=== PATIENT | female | born 1930 | race Caucasian/White ===

== ENCOUNTER 2018-11-26 09:04 | Emergency (ER) | payer BC, OTHER ==
--- NOTE | 2018-11-26 10:07 | PDOC ---
*Physical Exam - Vital Signs Last Vital Signs Temp Pulse Resp BP Pulse Ox 98.3 F 70 20 172/60 H 98 11/26/18 09:36 11/26/18 09:36 11/26/18 09:36 11/26/18 09:36 11/26/18 09:36 - Physical Exam General Appearance: Yes: Nourished, Appropriately Dressed HEENT: positive: Normal Voice, Hearing Grossly Normal Neck: positive: Trachea midline, Supple Respiratory/Chest: positive: Lungs Clear, Normal Breath Sounds Cardiovascular: positive: S1, S2, Systolic Murmur Vascular Pulses: Dorsalis-Pedis (R): 2+, Doralis-Pedis (L): 2+ ED Treatment Course - LABORATORY CBC & Chemistry Diagram: 11/26/18 10:22 11/26/18 10:22 Medical Decision Making - Medical Decision Making 11/26/18 10:46 Patient seen as pre-attending w/Dr. Brewster 87 year old female w/ PMH of HTN, HLD, CAD (s/p stent x2) who presents with diarrhea, lightheadedness and dizziness. Patient visited her PMD earlier in the week for constipation and took an unknown pill and subsequently develop 15 episodes of non-bloody watery stools. Patient states she started feel dizzy ( patient describes this as room spinning) around 4 a.m. this morning and the dizziness has persisted. No nausea/vomiting. Tolerating liquid PO intake. Denies chest pain, shortness of breath, numbness/tingling. Negative Stephanie Hallpike on PE, mild LLQ TTP Will CT Head, CTAP, CBC/CMP, EKG, Troponin x1 11/26/18 11:20 EKG shows RBB - no previous EKG in EMR Troponin (-) x1 Patient @ CT 11/26/18 12:[address] negative for acute bleed/ischemia CTAP negative 11/26/18 12:54 Patient reassessed @ bedside, dizziness improved 11/26/18 13:21 Patient ambulatory around ED Romberg Test negative 11/26/18 14:42 Dr. Brewster (PGY-1) discussed case with Dr. Fiore (covering for patient's PMD) - agrees with discharge home and will see patient tomorrow in the office. Patient and patient's family counseled on plan of care using Yoruba translation phones and discharged home. *DC/Admit/Observation/Transfer Diagnosis at time of Disposition: Vertigo Diarrhea Qualifiers: Diarrhea type: unspecified type Qualified Code(s): R19.7 - Diarrhea, unspecified - Discharge Dispostion Disposition: HOME Condition at time of disposition: Good - Prescriptions Prescriptions: Meclizine HCl 12.5 mg PO TID PRN #9 tablet PRN Reason: for vertigo - Referrals Referrals: Hunter Grover MD [Primary Care Provider] - - Patient Instructions Printed Discharge Instructions: DI for Vertigo, DI for Diarrhea and Traveler's Diarrhea -- Adult, Linaclotida Additional Instructions: You were seen and treated in the Emergency Department. We highly recommend follow up and further work-up. Please see your primary care doctor tomorrow for further evaluation. Please return to the Emergency Department if you experience any of the following : - continued diarrhea - bloody stool - worsening dizziness or lightheadedness - inability to eat or drink - chest pain - shortness of breath and/or difficulty breathing - severe abdominal pain - seizures, fainting, loss of consciousness, change in behavior, and/or change in mentation - anything signs or symptoms that concern you Usted fue visto y tratado en el Departamento de Emergencias. Recomendamos encarecidamente el seguimiento y el trabajo adicional. Consulte a salvador mdico de atencin primaria maana para monse evaluacin adicional. Por favor regrese al Departamento de Emergencias si experimenta alguno de los siguientes: - diarrea continua - heces con blessing - empeoramiento de los mareos o aturdimiento - incapacidad para comer o beber - Dolor de pecho - dificultad para respirar y / o dificultad para respirar - dolor abdominal taz - convulsiones, desmayos, prdida de conciencia, cambios en el comportamiento y / o cambios en la mentalidad - Cualquier signo o sntoma que le preocupe. Print Language: ARABIC - Post Discharge Activity
[2018-11-26 10:10] VITALS: BMI 21.2
[2018-11-26] MEDS ORDERED: SODIUM CHLORIDE 0.9% 500 ML INFUS.BAG IV ONE (10:23)
--- NOTE | 2018-11-26 10:30 | PDOC ---
History of Present Illness - General Chief Complaint: Lightheaded Stated Complaint: NAUSEA/DIARRHEA Time Seen by Provider: 11/26/18 09:32 History Source: Patient, Family Exam Limitations: Language Barrier ([employer] #[id number]) - History of Present Illness Initial Comments: 11/26/18 10:25 87 yo F pmh HTN, HLD p/w 15 episodes of nonbloody diarrhea for 1 day starting shortly after she took Linzess for constipation. Stool initially loosed but formed progressed to being watery. Patient took pepto-bismol to try alleviating symptoms. ENDORSES minimal abdominal pain, and decreased appetite - has not had food, only water to drink. DENIES N/V, h/o abdominal surgery. ENDORSES lightheadedness and dizziness but DENIES numbness, tingling, falls, LOC, trauma , changes in vision/hearing, chest pain, palpitations, SOB, dysuria, or sick contacts. 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 Past History - Past Medical History Allergies/Adverse Reactions: Allergies Allergy/AdvReac Type Severity Reaction Status Date / Time No Known Allergies Allergy Verified 11/26/18 09:35 Home Medications: Ambulatory Orders Escitalopram Oxalate [Lexapro -] 10 mg PO DAILY 11/26/18 Linaclotide [Linzess] 72 mcg PO DAILY 11/26/18 Meclizine HCl 12.5 mg PO TID PRN #9 tablet 11/26/18 Nebivolol [Bystolic -] 5 mg PO DAILY 11/26/18 Olmesartan Medoxomil 20 mg PO DAILY 11/26/18 COPD: No HTN: Yes Hypercholesterolemia: Yes - Suicide/Smoking/Psychosocial Hx Smoking History: Never smoked Hx Alcohol Use: No Drug/Substance Use Hx: No Review of Systems - Review of Systems Able to Perform ROS?: Yes Is the patient limited Urdu proficient: Yes Constitutional: Yes: Loss of Appetite. No: Chills, Fever HEENTM: No: Blurred Vision, Double Vision, Ear Pain, Ear Discharge, Tinnitus, Hearing Loss Respiratory: No: Cough, Shortness of Breath, Wheezing Cardiac (ROS): Yes: Lightheadedness. No: Chest Pain, Palpitations, Syncope ABD/GI: Yes: Diarrhea, Poor Appetite, Poor Fluid Intake. No: Abdominal Distended, Blood Streaked Bowels, Difficulty Swallowing, Nausea, Vomiting, Abdominal cramping, Tarry Stools : No: Dysuria Neurological: No: Headache, Numbness, Tingling *Physical Exam - Vital Signs Last Vital Signs Temp Pulse Resp BP Pulse Ox 98.3 F 70 20 172/60 H 98 11/26/18 09:36 11/26/18 09:36 11/26/18 09:36 11/26/18 09:36 11/26/18 09:36 - Physical Exam Comments: HEENT: NC/AT, EOMI, PERRLA. Moist mucus membranes - borderline dry. CN II-XII intact. CV: S1/S2, RRR, (+) systolic murmur LUNG: CTAB, no wheezes, crackles, rales, rhonchi. GI: soft, ndnt, +BS EXTREMITIES: 2+ distal pulses. No LE edema. NEURO: FROM UE and LE b/l. 5/5 strength UE and LE b/l. Sensation grossly intact. Intact finger to nose and heel-carlson testing. Neg. Romberg. General Appearance: Yes: Nourished, Appropriately Dressed. No: Apparent Distress ED Treatment Course - LABORATORY CBC & Chemistry Diagram: 11/26/18 10:22 11/26/18 10:22 Medical Decision Making - Medical Decision Making 11/26/18 10:37 87 yo F presenting with 15 episodes of nonbloody watery diarrhea for 1 day, starting soon after taking a new medication, Linzess, for constipation. Patient has decreased PO intake and lightheadedness/dizziness. Benign abdominal exam. Likely dehydration 2/2 diarrhea as a side effect of linzess (linaclotide). Considering but unlikely ACS, central vertigo, diverticulitis, UTI - CBC, CMP, Troponin, UA - IV, NS 1L - EKG - CT Head, CT ABD - Meclazine Dispo pending results 11/26/18 11:07 Labs reviewed Trop neg x1 Cr 1.1 11/26/18 12:41 CT head - no acute bleeds, masses, fractures, infarct CT Abd - diverticuli but no evidence of acute diverticulitis Romberg neg., no cerebellar signs. Patient ambulated well w/o dizziness or lightheadedness. Patient improved with meclazine and fluid bolus 11/26/18 14:[address] Fiore covering for Dr. Grover - amenable to plan, said patient can come in the following day. Dispo: home with PCP follow up and short supply of meclazine. *DC/Admit/Observation/Transfer Diagnosis at time of Disposition: Vertigo Diarrhea Qualifiers: Diarrhea type: unspecified type Qualified Code(s): R19.7 - Diarrhea, unspecified - Discharge Dispostion Disposition: HOME Condition at time of disposition: Good - Prescriptions Prescriptions: Meclizine HCl 12.5 mg PO TID PRN #9 tablet PRN Reason: for vertigo - Referrals Referrals: Hunter Grover MD [Primary Care Provider] - - Patient Instructions Printed Discharge Instructions: DI for Vertigo, DI for Diarrhea and Traveler's Diarrhea -- Adult, Linaclotida Additional Instructions: You were seen and treated in the Emergency Department. We highly recommend follow up and further work-up. Please see your primary care doctor tomorrow for further evaluation. Please return to the Emergency Department if you experience any of the following : - continued diarrhea - bloody stool - worsening dizziness or lightheadedness - inability to eat or drink - chest pain - shortness of breath and/or difficulty breathing - severe abdominal pain - seizures, fainting, loss of consciousness, change in behavior, and/or change in mentation - any signs or symptoms that concern you Usted fue visto y tratado en el Departamento de Emergencias. Recomendamos encarecidamente el seguimiento y el trabajo adicional. Consulte a salvador mdico de atencin primaria maana para monse evaluacin adicional. Por favor regrese al Departamento de Emergencias si experimenta alguno de los siguientes: - diarrea continua - heces con blessing - empeoramiento de los mareos o aturdimiento - incapacidad para comer o beber - Dolor de pecho - dificultad para respirar y / o dificultad para respirar - dolor abdominal taz - convulsiones, desmayos, prdida de conciencia, cambios en el comportamiento y / o cambios en la mentalidad - Cualquier signo o sntoma que le preocupe. Print Language: FAROESE - Post Discharge Activity
[2018-11-26 10:35] LABS: BASO % 0.2 % (0-2.0); EOS % 1.8 % (0-4.5); HEMATOCRIT 37.6 % (32.4-45.2); HEMOGLOBIN 12.6 GM/dL (10.7-15.3); LYMPH % 30.1 % (8-40); MCH 30.4 pg (25.7-33.7); MCHC 33.6 g/dl (32.0-36.0); MEAN CELL VOLUME 90.6 fl (80-96); MEAN PLT VOLUME 9.4 fl (7.5-11.1); MONO % 11.6 % (3.8-10.2); NEUT % 56.3 % (42.8-82.8); PLATELET COUNT 204 K/MM3 (134-434); RBC 4.15 M/mm3 (3.60-5.2); RDW 14.1 % (11.6-15.6); WHITE BLOOD COUNT 5.4 K/mm3 (4.0-10.0)
[2018-11-26] MEDS ORDERED: MECLIZINE HCL 12.5 MG TABLET PO ONE (10:40)
[2018-11-26] MEDS ORDERED: MECLIZINE HCL 12.5 MG TABLET ONE (10:42)
--- NOTE | 2018-11-26 11:05 | PDOC ---
Attending Attestation - Resident Resident Name: Leonides Brewster - ED Attending Attestation I have performed the following: I have examined & evaluated the patient, The case was reviewed & discussed with the resident, I agree w/resident's findings & plan, Exceptions are as noted - HPI HPI: 11/26/18 11:00 87 yo F with h/o htn cad, here with c/o loose watery stool and dizziness. pt states had previously had constipation, was given laxitive by dr Grover, and since has had loose watery stools. no c/o cp or sob. no f/c no lower abd discomfort. pt describes dizziness as spinning sensation started around 4 am while in bed. does have falling sensation. no focal weakness. no change to speech. no other complaints. does have nausea with vertigo, no vomiting. no h/ o prior vertigo. - Physicial Exam PE: 11/26/18 11:02 awake alert moist mucous membranes. heart rrr systolic murmur. lungs clear bilat abd soft mild llq ttp. no rebound no guarding. no cva tenderness. nuero awake alert facies symmetric. 5/5 all four ext. speech clear. finger to nose normal. alt hand movement normal. positive cb hallpike with sxs noted turning to left. skin warm and dry. - Medical Decision Making 11/26/18 11:05 87 yo F with h/o cad htn here with c/o vertigo, diarrhea, mild llq ttp on abd exam, and pos cb hallpike otherwise normal cerebellar exam. gait not test at this point. differential dehydration, diarrhea secondary to laxitive. diverituclitis colitis , uti, anemia. cva due to pt cv risk factors and agge. will obtain ct head. will treat vertigo with ivf and meclizine, reassess. 11/26/18 17:[address] head negative. feels much improved with meclizine. labs unremarkable. rox eckert with pcp. d/w pcp will see pt tomorrow. dc home.
[2018-11-26 11:06] LABS: ALBUMIN 4.2 g/dl (3.4-5.0); ALK PHOS 75 U/L (45-117); ANION GAP 8 MMOL/L (8-16); BILIRUBIN,TOTAL 0.6 mg/dL (0.2-1); BLOOD UREA NITROGEN 21.5 mg/dL (7-18); CALCIUM 9.2 mg/dL (8.5-10.1); CHLORIDE 106 mmol/L (98-107); CO2 26 mmol/L (21-32); CREATININE 1.1 mg/dL (0.55-1.3); GLUCOSE,RANDOM 106 mg/dL (74-106); POTASSIUM 4.1 mmol/L (3.5-5.1); SGOT/AST 22 U/L (15-37); SGPT/ALT 20 U/L (13-61); SODIUM 140 mmol/L (136-145)
[2018-11-26 11:52] LABS: EPI CELLS 1.8 /HPF (0-5/HPF); HYALINE CASTS 3 /lpf (0-8); PH,URINE 7.5 (5.0-8.0); URINE APPEARANCE CLEAR; URINE BACTERIA 4.1 /hpf (NEGATIVE); URINE BILIRUBIN NEGATIVE (NEGATIVE); URINE COLOR YELLOW; URINE GLUCOSE (UA) NEGATIVE (NEGATIVE); URINE KETONE NEGATIVE (NEGATIVE); URINE LEUK ESTERASE TRACE (NEGATIVE); URINE NITRITE NEGATIVE (NEGATIVE); URINE PROTEIN NEGATIVE (NEGATIVE); URINE RBC 0 /hpf (0-4); URINE UROBILINOGEN 0.2 mg/dL (0.2-1.0); URINE WBC 2 /hpf (0-5)
[2018-11-26 14:15] VITALS: BP 142/62; PULSE 64; TEMP 97.6
--- NOTE | 2018-11-26 17:38 | EKG ---
Test Reason : Blood Pressure : / mmHG Vent. Rate : 071 BPM Atrial Rate : 071 BPM P-R Int : 206 ms QRS Dur : 146 ms QT Int : 442 ms P-R-T Axes : 080 074 010 degrees QTc Int : 480 ms NORMAL SINUS RHYTHM RIGHT BUNDLE BRANCH BLOCK ABNORMAL ECG NO PREVIOUS ECGS AVAILABLE Confirmed by KYLE DUNN, MENDOZA ([id number]) on 11/26/2018 5:38:06 PM Referred By: Confirmed By:MENDOZA WRIGHT MD
== END 2018-11-26 15:14 | disposition home or self-care (01) ==
LOC: JER 09:04
PROC: 3E0337Z Introduction of Electrolytic and Water Balance Substance into Peripheral Vein, Percutaneous Approach (ICD-10-PCS; principal; 2018-11-26)
DX: R42 Dizziness and giddiness (principal); R19.7 Diarrhea, unspecified; I10 Essential (primary) hypertension; E78.5 Hyperlipidemia, unspecified; I25.10 Atherosclerotic heart disease of native coronary artery without angina pectoris; Z95.5 Presence of coronary angioplasty implant and graft
CPT/HCPCS: 36415; 70450-TC; 74177-TC; 80053; 81003; 82550; 84484; 85025; 87086; 93005; 93010; 99284-25

== ENCOUNTER 2020-06-11 12:59 | Emergency (ER) | payer OTHER ==
[2020-06-11 13:06] VITALS: BMI 20.6
[2020-06-11] MEDS ORDERED: CASIRIVIMAB (REGN10933) 1,200 MG, IMDEVIMAB (REGN10987) 1,200 MG in SODIUM CHLORIDE 250 ML IVPB ONE (13:08)
[2020-06-11] MEDS ORDERED: ACETAMINOPHEN 1000 MG/100 ML VIAL (NON FORMULARY) IVPB ONE (13:09)
[2020-06-11 13:51] LABS: BASO % 0.1 % (0-2.0); HEMATOCRIT 40.9 % (32.4-45.2); HEMOGLOBIN 13.7 GM/dL (10.7-15.3); LYMPH % 35.7 % (8-40); MCH 30.7 pg (25.7-33.7); MCHC 33.6 g/dl (32.0-36.0); MEAN CELL VOLUME 91.4 fl (80-96); MEAN PLT VOLUME 9.4 fl (7.5-11.1); MONO % 20.3 % (3.8-10.2); NEUT % 43.9 % (42.8-82.8); PLATELET COUNT 163 K/MM3 (134-434); RBC 4.47 M/mm3 (3.60-5.2); RDW 14.6 % (11.6-15.6); WHITE BLOOD COUNT 4.5 K/mm3 (4.0-10.0)
[2020-06-11 14:10] LABS: POTASSIUM 3.8 mmol/L (3.5-5.1)
[2020-06-11 14:12] LABS: ALBUMIN 3.9 g/dl (3.4-5.0); BLOOD UREA NITROGEN 17.8 mg/dL (7-18); CALCIUM 8.9 mg/dL (8.5-10.1)
[2020-06-11 14:16] LABS: CREATININE 1.4 mg/dL (0.55-1.3)
[2020-06-11 14:17] LABS: BILIRUBIN,TOTAL 0.5 mg/dL (0.2-1); TOT PROT 7.6 g/dl (6.4-8.2)
[2020-06-11 16:10] LABS: PLATELET ESTIMATE ADEQUATE
[2020-06-11 16:57] VITALS: BP 146/86; PULSE 94; TEMP 98.5
== END 2020-06-11 17:51 | disposition home or self-care (01) ==
LOC: JER 12:59 → JCOVINFU 12:59
PROC: 3E0333Z Introduction of Anti-inflammatory into Peripheral Vein, Percutaneous Approach (ICD-10-PCS; principal; 2020-06-11)
PROC: 3E03329 Introduction of Other Anti-infective into Peripheral Vein, Percutaneous Approach (ICD-10-PCS; 2020-06-11)
DX: U07.1 COVID-19 (principal)
CPT/HCPCS: 36415; 80053; 85025; 96374; 96375; 99284-25; J0131; M0243; Q0243

== ENCOUNTER 2020-07-05 19:39 | Emergency (ER) | payer OTHER ==
[2020-07-05 19:46] VITALS: BMI 18.8
[2020-07-05] MEDS ORDERED: SODIUM CHLORIDE 1,000 ML IV SCH (20:30)
[2020-07-05 21:17] LABS: BASO % 0.1 % (0-2.0); EOS % 0.5 % (0-4.5); HEMATOCRIT 34.3 % (32.4-45.2); HEMOGLOBIN 11.7 GM/dL (10.7-15.3); LYMPH % 18.1 % (8-40); MCH 30.6 pg (25.7-33.7); MCHC 34.1 g/dl (32.0-36.0); MEAN CELL VOLUME 89.7 fl (80-96); MEAN PLT VOLUME 8.9 fl (7.5-11.1); NEUT % 73.3 % (42.8-82.8); PLATELET COUNT 170 K/MM3 (134-434); RBC 3.83 M/mm3 (3.60-5.2); RDW 15.5 % (11.6-15.6)
[2020-07-05 21:23] LABS: INR 1.51 (0.83-1.09); PROTHROMBIN TIME (PATIENT) 18.1 SEC (9.7-13.0)
[2020-07-05 21:26] LABS: ACTIVATED PTT 30.3 SECONDS (25.2-36.5)
[2020-07-05 21:41] LABS: EPI CELLS 6 /uL (0-25.1); HYALINE CASTS 1 /uL (0-3.1); PH,URINE 7.5 (5.0-8.0); URINE APPEARANCE CLOUDY; URINE BACTERIA >9,000 /uL (0-1359); URINE BILIRUBIN NEGATIVE (NEGATIVE); URINE COLOR ORANGE; URINE GLUCOSE (UA) NEGATIVE (NEGATIVE); URINE KETONE NEGATIVE (NEGATIVE); URINE LEUK ESTERASE 3+ (NEGATIVE); URINE NITRITE POSITIVE (NEGATIVE); URINE PROTEIN 1+ (NEGATIVE); URINE RBC 53 /uL (0-23.9); URINE WBC 2261 /uL (0-25.8)
[2020-07-05 21:43] LABS: CHLORIDE 99 mmol/L (98-107); POTASSIUM 4.2 mmol/L (3.5-5.1); SODIUM 134 mmol/L (136-145)
[2020-07-05 21:45] LABS: ALBUMIN 3.7 g/dl (3.4-5.0); BLOOD UREA NITROGEN 26.4 mg/dL (7-18); CALCIUM 8.8 mg/dL (8.5-10.1); CHOLESTEROL 120 mg/dL (50-200); TRIGLYCERIDES 61 mg/dL (0-150)
[2020-07-05 21:46] LABS: ANION GAP 10 MMOL/L (8-16); CO2 25 mmol/L (21-32); GLUCOSE,RANDOM 115 mg/dL (74-106); LDL CHOLESTEROL (ONLY SJRH) 64 mg/dL (5-100)
[2020-07-05] MEDS ORDERED: CEFTRIAXONE 1 GM in DEXTROSE 5%-WATER - 100 ML IVPB ONE (21:46)
[2020-07-05 21:49] LABS: HDL CHOLESTEROL 49 mg/dL (40-60); SGOT/AST 14 U/L (15-37); SGPT/ALT 15 U/L (13-61)
[2020-07-05 21:50] LABS: BILIRUBIN,TOTAL 1.1 mg/dL (0.2-1)
[2020-07-05 21:51] LABS: ALK PHOS 70 U/L (45-117); TOT PROT 7.1 g/dl (6.4-8.2)
[2020-07-05] MEDS ORDERED: CEFTRIAXONE 1 GM/50 ML BAG ONE (22:53)
[2020-07-05 23:51] VITALS: BP 180/96; PULSE 90; TEMP 99.9
== END 2020-07-06 00:30 | disposition short-term general hospital (02) ==
LOC: JER 19:39
DX: I63.232 Cerebral infarction due to unspecified occlusion or stenosis of left carotid arteries (principal)
CPT/HCPCS: 36415; 70450-TC; 70496-TC; 70498-TC; 71045-TC-FY; 80053; 80061; 81003; 82550; 83605; 83721; 84484; 85025; 85610; 85730; 86850; 86900; 86901; 87040; 87086; 87186; 93005; 93010; 99285-25; C9803; U0003